=== PATIENT | male | born 1990 | race Caucasian/White ===

== ENCOUNTER 2016-11-13 03:16 | Emergency (ER) | payer BC ==
[2016-11-13 03:30] VITALS: RESP 18
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
[2016-11-13 13:30] VITALS: BP 149/81; PULSE 105; TEMP 98
== END 2016-11-13 13:29 | disposition home or self-care (01) ==
LOC: EC 03:16
DX: F43.21 Adjustment disorder with depressed mood (principal); F10.129 Alcohol abuse with intoxication, unspecified; Y90.8 Blood alcohol level of 240 mg/100 ml or more; F17.200 Nicotine dependence, unspecified, uncomplicated; Z79.899 Other long term (current) drug therapy
CPT/HCPCS: 80306; 99285

== ENCOUNTER 2018-07-22 16:20 | Emergency (ER) | payer BC, OTHER ==
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
[2018-07-22 17:08] VITALS: RESP 18
[2018-07-22] MEDS ORDERED: KETOROLAC 60 MG/2 ML VIAL IM STA (17:36)
[2018-07-22] MEDS ORDERED: LIDOCAINE 1%-EPI 1:100,000 20 ML VIAL SQ STA (17:39)
[2018-07-22 19:42] VITALS: BP 128/74; PULSE 92; TEMP 97
== END 2018-07-22 19:41 | disposition home or self-care (01) ==
LOC: EC 16:20
DX: L02.31 Cutaneous abscess of buttock (principal); F32.9 Major depressive disorder, single episode, unspecified; F17.200 Nicotine dependence, unspecified, uncomplicated; Z79.899 Other long term (current) drug therapy
CPT/HCPCS: 87070; 87205; 99283; 10060; 96372; J1885